=== PATIENT | female | born 1945 | race Caucasian/White ===

== ENCOUNTER 2022-11-16 01:52 | Inpatient (IN) | payer MEDICARE, MEDICAID ==
[~2022-11-16] VITALS: Ht 162.6 cm; Wt 65.3 kg
[~2022-11-16 01:52] MED LIST: ASPI-1198 PO; LISI10TA PO; METF-444 PO; MULT1TAB70 PO; OMEP20 PO
[2022-11-16] MEDS ORDERED: LABETALOL HCL 5 MG/ML 20 ML VIAL IVP PRN ×4 (02:00→02:15)
[2022-11-16 02:16] LABS: BASOPHILS % (AUTO) 0.6 % (0.0-2.0); EOSINOPHILS % (AUTO) 0.2 % (1.0-6.0); HEMATOCRIT 28.9 % (36-46); HEMOGLOBIN 9.8 g/dL (12.0-16.0); LYMPHOCYTES # (AUTO) 1.2 K/uL (1.0-4.8); LYMPHOCYTES % (AUTO) 17.7 % (22.0-44.0); MEAN CORPUSCULAR HEMOGLOBIN 34.6 pg (26.0-34.0); MEAN CORPUSCULAR HGB CONC 33.9 G/dL (31.0-37.0); MEAN CORPUSCULAR VOLUME 102 fL (80-100); MONOCYTES # (AUTO) 1.1 K/uL (0.1-1.0); MONOCYTES % (AUTO) 17.2 % (2.0-9.0); NEUTROPHILS # (AUTO) 4.2 K/uL (1.8-7.7); NEUTROPHILS % (AUTO) 64.3 % (40.0-70.0); PLATELET COUNT (AUTO) 182 K/uL (150-450); RED BLOOD CELL COUNT(AUTO) 2.83 MIL/uL (4.00-5.20); RED CELL DISTRIBUTION WIDTH 14.5 % (11.5-14.5); WHITE BLOOD COUNT (AUTO) 6.6 K/uL (4.5-11.0)
[2022-11-16 02:24] LABS: INR 1.3 (0.9-1.1); PROTHROMBIN TIME 13.1 SEC (9.4-11.6)
[2022-11-16 02:26] LABS: ALANINE AMINOTRANSFERASE 19 U/L (12-78); ALBUMIN 2.6 g/dL (3.4-5.0); ALKALINE PHOSPHATASE 115 U/L (46-116); ANION GAP 15 mmol/L (8-16); ASPARTATE AMINOTRANSFERASE 37 U/L (15-37); BILIRUBIN,TOTAL 1.7 mg/dL (0.1-1.0); CALCIUM, TOTAL 9.6 mg/dL (8.8-10.5); CARBON DIOXIDE 17 mmol/L (22-29); CHLORIDE 90 mmol/L (98-107); CHOL/HDL RATIO 2.9 (3.9-5.7); CHOLESTEROL 114 mg/dL (131-200); CREATININE 5.09 mg/dL (0.60-1.30); GLOMERULAR FILTR. RATE CALC 8 mL/min (>60); GLUCOSE,RANDOM 98 mg/dL (70-110); HDL CHOLESTEROL 40 mg/dL (40-60); LDL CHOL (CALC.) 56 mg/dL (0-130); LIPASE 57 U/L (16-77); TOTAL PROTEIN, SERUM 6.8 g/dL (6.4-8.2); TRIGLYCERIDES 91 mg/dL (15-150); UREA NITROGEN, BLOOD 78 mg/dL (7-18)
[2022-11-16 02:27] LABS: AMMONIA 128 umol/L (11-32); TROPONIN I-HIGH SENSITIVITY 22 ng/L (<51)
[2022-11-16 02:34] LABS: ALCOHOL, BLOOD (SERUM) < 3 mg/dL (0-10)
[2022-11-16 02:38] LABS: SODIUM SERUM 122 mmol/L (136-145)
[2022-11-16] MEDS ORDERED: LACTULOSE 20 GM/30 ML SOLUTION UDCUP NG ONE (02:45)
[2022-11-16] MEDS ORDERED: INSULIN REGULAR, HUMAN 100 UNITS/ML IVP ONE (02:45)
[2022-11-16] MEDS ORDERED: SODIUM CHLORIDE 0.9% 1,000 ML IV ONE (02:45)
[2022-11-16] MEDS ORDERED: DEXTROSE 50%-WATER 25 GM/50 ML SYRINGE IVP ONE (02:45)
[2022-11-16] MEDS ORDERED: CALCIUM GLUCONATE 100 MG/ML 10 ML IVP ONE (02:45)
[2022-11-16] MEDS ORDERED: SODIUM BICARBONATE [ADULT] 8.4% 50 MEQ/50 ML SYRINGE IVP ONE (02:45)
[2022-11-16 02:51] LABS: ALCOHOL, URINE DRUG SCREEN NEGATIVE (NEGATIVE); AMPHET/METH SCREEN,URINE NEGATIVE (NEGATIVE); BARBITURATE SCREEN, URINE NEGATIVE (NEGATIVE); BENZODIAZEPINES SCREEN,URINE NEGATIVE (NEGATIVE); CANNABINOID SCREEN,URINE NEGATIVE (NEGATIVE); COCAINE SCREEN,URINE NEGATIVE (NEGATIVE); METHADONE SCREEN, URINE NEGATIVE (NEGATIVE); OPIATE SCREEN,URINE NEGATIVE (NEGATIVE); PHENCYCLIDINE SCREEN,URINE NEGATIVE (NEGATIVE)
[2022-11-16 02:53] LABS: APPEARANCE,URINE CLEAR (CLEAR); BILIRUBIN,URINE NEGATIVE (NEGATIVE); COLOR,URINE YELLOW (YELLOW); GLUCOSE, URINE (UA) NEGATIVE (NEGATIVE); KETONES,URINE TRACE mg/dL (NEGATIVE); LEUKOCYTE ESTERASE ,URINE NEGATIVE (NEGATIVE); NITRATE,URINE NEGATIVE (NEGATIVE); OCCULT BLOOD,URINE NEGATIVE (NEGATIVE); PH,URINE 5.5 (5.0-8.0); PROTEIN,URINE 30-70 mg/dL (NEGATIVE); SPECIFIC GRAVITIY, URINE 1.024 (1.003-1.030)
[2022-11-16 02:58] LABS: PH,URINE DRUG SCREEN 5.5 (5.0-8.0)
[2022-11-16 03:04] LABS: BACTERIA,URINE None Seen /HPF (None Seen); RBC,URINE None Seen /HPF (0-2); SQUAMOUS EPITHELIAL CELL,UR None Seen /LPF (None Seen); WBC,URINE 0-2 /HPF (0-5)
[2022-11-16] MEDS ORDERED: ONDANSETRON HCL 4 MG/2 ML VIAL IVP PRN (03:15)
[2022-11-16] MEDS ORDERED: ALBUTEROL SULFATE 2.5 MG/0.5 ML NEB SOLUTION NEB PRN (03:15)
[2022-11-16] MEDS ORDERED: IOHEXOL 350 MG/ML 100 ML VIAL ONE (03:16)
[2022-11-16] MEDS ORDERED: ALBUMIN HUMAN 25%-25GM/100ML 100 ML IV ONE (03:30)
[2022-11-16] MEDS ORDERED: SODIUM ZIRCONIUM CYCLOSILICATE 5 GM POWDER PACKET PO ONE (03:30)
[2022-11-16 05:12] LABS: CALCIUM, TOTAL 9.3 mg/dL (8.8-10.5); CREATININE 5.05 mg/dL (0.60-1.30); POTASSIUM 4.7 mmol/L (3.5-5.1)
[2022-11-16 05:51] LABS: COVID AG,FIA SOURCE NASAL SWAB
[2022-11-16 06:18] LABS: SARS-COV2 (COVID) ANTIGEN,FIA Negative (Negative)
[2022-11-16 07:25] LABS: B-TYPE NATRIURETIC PEPTIDE 86 pg/mL (0-100)
[2022-11-16] MEDS ORDERED: *CLINICAL-CEFEPIME DOSING CLINICAL ONE (08:15)
[2022-11-16] MEDS: ACETYLCYSTEINE 10% 100 MG/ML 30 ML ORAL SOLUTION PO SCH ×2 (08:15→21:24)
[2022-11-16] MEDS: DOCUSATE SODIUM 100 MG CAPSULE PO SCH ×2 (09:00→21:00)
[2022-11-16] MEDS: CEFEPIME HCL 1 GM in DEXTROSE 5%-WATER 50 ML IV SCH (09:00)
[2022-11-16] MEDS ORDERED: LACTULOSE 20 GM/30 ML SOLUTION UDCUP PO SCH (09:00)
[2022-11-16 09:15] LABS: CHOL/HDL RATIO 2.8 (3.9-5.7)
[2022-11-16 09:33] LABS: ABG CARBOXYHEMOGLOBIN 0.4 % (0.0-1.5); ABG HCO3 17.4 mmol/L (22.0-26.0); ABG METHEMOGLOBIN 0.3 % (0.0-1.5); ABG OXYGEN CONTENT 12.5 mL/dL (15.0-23.0); ABG OXYGEN SATURATION 93.8 % (95.0-98.0); ABG OXYHEMOGLOBIN 93.1 % (94.0-100.0); ABG PCO2 22 mmHg (35-45); ABG PH 7.435 (7.35-7.450); ABG TOTAL HEMOGLOBIN 9.5 G/dL (12.0-18.0); PO2, ARTERIAL BG 72.7 mmHg (75.0-83.0); SOURCE, BLOOD GAS ARTERIAL; TEMPERATURE, FAHRENHEIT, BG 97.6 FAHREN (96.0-98.6)
[2022-11-16 09:34] LABS: ALLEN TEST, BLOOD GAS Positive; O2 DEVICE,BLOOD GAS ROOM AIR (ROOM AIR); SITE, BLOOD GAS LFT RADIAL
[2022-11-16 09:47] LABS: INR 1.4 (0.9-1.1); PROTHROMBIN TIME 13.9 SEC (9.4-11.6)
[2022-11-16] MEDS ORDERED: LACTULOSE 200 GM/300 ML RECTAL SOLUTION PR SCH (10:00)
[2022-11-16 10:17] LABS: GLUCOMETER DEV NAME(LOC) ERT.5; GLUCOSE,POINT OF CARE 88 MG/DL (70-110)
[2022-11-16] MEDS ORDERED: VANCOMYCIN HCL 1.25 GM in DEXTROSE 5%-WATER 250 ML IV ONE (11:00)
[2022-11-16] MEDS: ALBUMIN HUMAN 25%-25GM/100ML 100 ML IV SCH ×2 (11:21→21:27)
[2022-11-16 12:00] VITALS: BP 111/62; PULSE 85; RESP 22; TEMP 96.7
[2022-11-16 13:11] LABS: GLUCOSE,POINT OF CARE 118 MG/DL (70-110)
[2022-11-16] MEDS ORDERED: MULT-660 PO (14:44)
[2022-11-16] MEDS ORDERED: LISI-893 PO (14:44)
[2022-11-16 16:00] VITALS: PULSE 80
[2022-11-16 20:00] VITALS: BP 111/66; PULSE 80; PULSE 84; RESP 16; TEMP 97.4
[2022-11-16] MEDS ORDERED: ACETYLCYSTEINE 20% 200 MG/ML 4 ML ORAL SOLUTION PO SCH (21:12)
[2022-11-16] MEDS: LACTULOSE 20 GM/30 ML SOLUTION UDCUP NG SCH (21:22)
[2022-11-17] VITALS (7 sets, daily range): BP systolic 105–125; BP diastolic 58–68; PULSE 81–90; RESP 16–19; TEMP 96.7–98.1
[2022-11-17 05:09] LABS: BASOPHILS % (AUTO) 0.4 % (0.0-2.0); EOSINOPHILS % (AUTO) 0.4 % (1.0-6.0); HEMATOCRIT 23.4 % (36-46); LYMPHOCYTES # (AUTO) 0.7 K/uL (1.0-4.8); LYMPHOCYTES % (AUTO) 11.4 % (22.0-44.0); MEAN CORPUSCULAR HEMOGLOBIN 34.5 pg (26.0-34.0); MEAN CORPUSCULAR VOLUME 102 fL (80-100); MONOCYTES # (AUTO) 0.9 K/uL (0.1-1.0); MONOCYTES % (AUTO) 16.2 % (2.0-9.0); NEUTROPHILS # (AUTO) 4.1 K/uL (1.8-7.7); NEUTROPHILS % (AUTO) 71.6 % (40.0-70.0); PLATELET COUNT (AUTO) 118 K/uL (150-450); RED BLOOD CELL COUNT(AUTO) 2.31 MIL/uL (4.00-5.20); RED CELL DISTRIBUTION WIDTH 14.6 % (11.5-14.5); WHITE BLOOD COUNT (AUTO) 5.8 K/uL (4.5-11.0)
[2022-11-17 05:19] LABS: CALCIUM, TOTAL 9.5 mg/dL (8.8-10.5); CREATININE 4.76 mg/dL (0.60-1.30); MAGNESIUM 2.3 mg/dL (1.80-2.40); POTASSIUM 4.6 mmol/L (3.5-5.1)
[2022-11-17 05:27] LABS: ALBUMIN 3.3 g/dL (3.4-5.0); BILIRUBIN,DIRECT 1.1 mg/dL (0.00-0.20); BILIRUBIN,TOTAL 2.1 mg/dL (0.1-1.0); TOTAL PROTEIN, SERUM 6.3 g/dL (6.4-8.2)
[2022-11-17] MEDS ORDERED: VANCOMYCIN 1GM/WATER(PEG/NADA) 200 ML IV PRN (07:30)
[2022-11-17] MEDS: LACTULOSE 20 GM/30 ML SOLUTION UDCUP NG SCH ×2 (07:35→16:14)
[2022-11-17] MEDS: CEFEPIME HCL 1 GM in DEXTROSE 5%-WATER 50 ML IV SCH (07:35)
[2022-11-17] MEDS: ACETYLCYSTEINE 20% 200 MG/ML 4 ML ORAL SOLUTION PO SCH ×2 (07:37→21:49)
[2022-11-17] MEDS: DOCUSATE SODIUM 100 MG CAPSULE PO SCH ×2 (07:37→21:00)
[2022-11-17] MEDS: PANTOPRAZOLE SODIUM 40 MG/VIAL IVP SCH (09:10)
[2022-11-17] MEDS: ALBUMIN HUMAN 25%-25GM/100ML 100 ML IV SCH ×2 (10:07→22:49)
[2022-11-17 23:32] LABS: GLUCOMETER DEV NAME(LOC) 5N.1C; GLUCOSE,POINT OF CARE 88 MG/DL (70-110)
[2022-11-18] MEDS: LACTULOSE 20 GM/30 ML SOLUTION UDCUP NG SCH ×3 (00:13→16:14)
[2022-11-18 00:21] VITALS: BP 111/60; PULSE 92; RESP 18; TEMP 98.4
[2022-11-18 04:33] VITALS: BP 119/60; PULSE 87; RESP 18; TEMP 97.8
[2022-11-18] MEDS ORDERED: VANCOMYCIN HCL 750 MG in DEXTROSE 5%-WATER 250 ML IV ONE (05:00)
[2022-11-18 07:27] LABS: CALCIUM, TOTAL 9.5 mg/dL (8.8-10.5); CREATININE 4.6 mg/dL (0.60-1.30); POTASSIUM 4.5 mmol/L (3.5-5.1)
[2022-11-18 07:37] LABS: ALBUMIN 3.7 g/dL (3.4-5.0); BILIRUBIN,DIRECT 1.1 mg/dL (0.00-0.20); BILIRUBIN,TOTAL 2.4 mg/dL (0.1-1.0); TOTAL PROTEIN, SERUM 6.2 g/dL (6.4-8.2)
[2022-11-18] MEDS: ACETYLCYSTEINE 20% 200 MG/ML 4 ML ORAL SOLUTION PO SCH ×2 (08:43→21:00)
[2022-11-18] MEDS ORDERED: SODIUM CHLORIDE 0.9% 0 ML IV ONE (08:44)
[2022-11-18] MEDS: CEFEPIME HCL 1 GM in DEXTROSE 5%-WATER 50 ML IV SCH (08:44)
[2022-11-18] MEDS: PANTOPRAZOLE SODIUM 40 MG/VIAL IVP SCH ×2 (08:44→20:33)
[2022-11-18] MEDS: DOCUSATE SODIUM 100 MG CAPSULE PO SCH ×2 (08:44→21:00)
[2022-11-18] MEDS: ALBUMIN HUMAN 25%-25GM/100ML 100 ML IV SCH ×3 (10:58→22:28)
[2022-11-18 11:23] VITALS: BP 112/62; PULSE 83; RESP 18; TEMP 98
[2022-11-18 11:59] LABS: BASOPHILS % (AUTO) 0.4 % (0.0-2.0); EOSINOPHILS % (AUTO) 0.6 % (1.0-6.0); HEMATOCRIT 23.1 % (36-46); HEMOGLOBIN 7.7 g/dL (12.0-16.0); LYMPHOCYTES # (AUTO) 0.7 K/uL (1.0-4.8); LYMPHOCYTES % (AUTO) 11.4 % (22.0-44.0); MEAN CORPUSCULAR HEMOGLOBIN 34.2 pg (26.0-34.0); MEAN CORPUSCULAR HGB CONC 33.3 G/dL (31.0-37.0); MEAN CORPUSCULAR VOLUME 103 fL (80-100); MONOCYTES # (AUTO) 0.9 K/uL (0.1-1.0); MONOCYTES % (AUTO) 16.2 % (2.0-9.0); NEUTROPHILS # (AUTO) 4.1 K/uL (1.8-7.7); NEUTROPHILS % (AUTO) 71.4 % (40.0-70.0); PLATELET COUNT (AUTO) 102 K/uL (150-450); RED BLOOD CELL COUNT(AUTO) 2.25 MIL/uL (4.00-5.20); RED CELL DISTRIBUTION WIDTH 14.8 % (11.5-14.5); WHITE BLOOD COUNT (AUTO) 5.8 K/uL (4.5-11.0)
[2022-11-18 12:38] LABS: RBC MORPHOLOGY COMMENT ABNORMAL RBC MORPH
[2022-11-18] MEDS ORDERED: SODIUM CHLORIDE 0.9% 250 ML IV ONE (13:33)
[2022-11-18] MEDS: OCTREOTIDE ACETATE 500 MCG in SODIUM CHLORIDE 0.9% 97.5 ML IV SCH ×2 (13:37→22:36)
[2022-11-18] MEDS: RIFAXIMIN 550 MG TABLET PO SCH ×2 (13:41→21:00)
[2022-11-18 15:21] VITALS: BP 112/69; PULSE 87; RESP 18; TEMP 98.1
[2022-11-18] MEDS ORDERED: OCTREOTIDE ACETATE 100 MCG/ML VIAL SQ SCH (16:00)
[2022-11-18] MEDS: MIDODRINE HCL 2.5 MG TABLET PO SCH ×2 (16:14→21:00)
[2022-11-18 20:20] VITALS: RESP 16
[2022-11-18 23:13] LABS: GLUCOMETER DEV NAME(LOC) 5N.1C; GLUCOSE,POINT OF CARE 135 MG/DL (70-110)
[2022-11-19] VITALS (7 sets, daily range): BP systolic 103–122; BP diastolic 54–71; PULSE 55–95; RESP 14–20; TEMP 97–98.6
[2022-11-19] MEDS: LACTULOSE 20 GM/30 ML SOLUTION UDCUP NG SCH ×4 (00:23→23:46)
[2022-11-19] MEDS: ALBUMIN HUMAN 25%-25GM/100ML 100 ML IV SCH ×4 (04:01→21:54)
[2022-11-19 07:38] LABS: BILIRUBIN,DIRECT 1.2 mg/dL (0.00-0.20); BILIRUBIN,TOTAL 2.6 mg/dL (0.1-1.0); CALCIUM, TOTAL 9.7 mg/dL (8.8-10.5); CREATININE 4.38 mg/dL (0.60-1.30); MAGNESIUM 2.4 mg/dL (1.80-2.40); PHOSPHORUS 5.6 mg/dL (2.5-4.9); POTASSIUM 4.2 mmol/L (3.5-5.1); TOTAL PROTEIN, SERUM 6.2 g/dL (6.4-8.2)
[2022-11-19] MEDS: RIFAXIMIN 550 MG TABLET PO SCH ×2 (09:24→20:15)
[2022-11-19] MEDS: PANTOPRAZOLE SODIUM 40 MG/VIAL IVP SCH ×2 (09:24→20:15)
[2022-11-19] MEDS: MIDODRINE HCL 2.5 MG TABLET PO SCH ×3 (09:24→20:15)
[2022-11-19] MEDS: DOCUSATE SODIUM 100 MG CAPSULE PO SCH ×2 (09:24→20:33)
[2022-11-19] MEDS: OCTREOTIDE ACETATE 500 MCG in SODIUM CHLORIDE 0.9% 97.5 ML IV SCH ×2 (09:25→18:04)
[2022-11-19] MEDS ORDERED: PROPOFOL 1% 20 ML VIAL IVP ONE (12:00)
[2022-11-19] MEDS ORDERED: LIDOCAINE/PF 2% 5 ML VIAL IM ONE (12:00)
[2022-11-19] MEDS ORDERED: ALBUTEROL SULFATE HFA 90 MCG/PUFF 8 GM INHALER IH ONE (12:00)
[2022-11-19] MEDS ORDERED: GLYCOPYRROLATE 0.2 MG/ML VIAL IM ONE (12:00)
[2022-11-19] MEDS: CEFEPIME HCL 1 GM in DEXTROSE 5%-WATER 50 ML IV SCH (12:31)
[2022-11-19] MEDS: SEVELAMER CARBONATE 800 MG TABLET PO SCH ×2 (12:31→18:04)
[2022-11-19] MEDS: ACETYLCYSTEINE 20% 200 MG/ML 4 ML ORAL SOLUTION PO SCH (12:31)
[2022-11-19] MEDS: ACETAMINOPHEN 325 MG TABLET PO PRN ×2 (17:17→20:17)
[2022-11-19] MEDS: OXYGEN THERAPY IH SCH (20:00)
[2022-11-19] MEDS ORDERED: MORPHINE SULFATE 2 MG/ML SYRINGE IVP ONE (23:15)
[2022-11-20] MEDS: ALBUMIN HUMAN 25%-25GM/100ML 100 ML IV SCH ×4 (03:36→22:49)
[2022-11-20] MEDS: OCTREOTIDE ACETATE 500 MCG in SODIUM CHLORIDE 0.9% 97.5 ML IV SCH ×2 (05:03→17:50)
[2022-11-20 05:21] VITALS: BP 104/57; PULSE 67; RESP 16; TEMP 97.4
[2022-11-20 06:09] LABS: ALBUMIN 4.4 g/dL (3.4-5.0); BILIRUBIN,TOTAL 2.7 mg/dL (0.1-1.0); CALCIUM, TOTAL 9.3 mg/dL (8.8-10.5); CREATININE 4.44 mg/dL (0.60-1.30); MAGNESIUM 2.4 mg/dL (1.80-2.40); PHOSPHORUS 5.8 mg/dL (2.5-4.9); POTASSIUM 3.9 mmol/L (3.5-5.1); TOTAL PROTEIN, SERUM 6.1 g/dL (6.4-8.2)
[2022-11-20 07:36] VITALS: BP 100/45; PULSE 58; RESP 18; TEMP 98
[2022-11-20] MEDS: OXYGEN THERAPY IH SCH ×2 (08:27→20:00)
[2022-11-20] MEDS: DOCUSATE SODIUM 100 MG CAPSULE PO SCH ×2 (08:28→21:00)
[2022-11-20] MEDS: RIFAXIMIN 550 MG TABLET PO SCH ×2 (08:28→20:04)
[2022-11-20] MEDS: LACTULOSE 20 GM/30 ML SOLUTION UDCUP NG SCH ×3 (08:28→23:34)
[2022-11-20] MEDS: SEVELAMER CARBONATE 800 MG TABLET PO SCH ×3 (08:28→17:50)
[2022-11-20] MEDS: MIDODRINE HCL 2.5 MG TABLET PO SCH ×3 (08:29→20:04)
[2022-11-20] MEDS: PANTOPRAZOLE SODIUM 40 MG/VIAL IVP SCH ×2 (08:29→20:04)
[2022-11-20] MEDS: CEFEPIME HCL 1 GM in DEXTROSE 5%-WATER 50 ML IV SCH (08:30)
[2022-11-20 09:11] LABS: GLUCOMETER DEV NAME(LOC) 5N.2C; GLUCOSE,POINT OF CARE 154 MG/DL (70-110)
[2022-11-20 11:11] VITALS: BP 111/53; PULSE 56; RESP 20; TEMP 97.8
[2022-11-20] MEDS: ACETAMINOPHEN 325 MG TABLET PO PRN (12:39)
[2022-11-20] MEDS ORDERED: MORPHINE SULFATE 2 MG/ML SYRINGE IVP PRN (14:15)
[2022-11-20 15:41] VITALS: BP 97/53; PULSE 55; RESP 18; TEMP 98
[2022-11-20 16:08] LABS: BASOPHILS % (AUTO) 0.6 % (0.0-2.0); EOSINOPHILS % (AUTO) 1.2 % (1.0-6.0); HEMATOCRIT 22.7 % (36-46); HEMOGLOBIN 7.5 g/dL (12.0-16.0); LYMPHOCYTES # (AUTO) 0.5 K/uL (1.0-4.8); LYMPHOCYTES % (AUTO) 10.1 % (22.0-44.0); MEAN CORPUSCULAR HEMOGLOBIN 34.4 pg (26.0-34.0); MEAN CORPUSCULAR HGB CONC 32.9 G/dL (31.0-37.0); MEAN CORPUSCULAR VOLUME 105 fL (80-100); MONOCYTES # (AUTO) 0.7 K/uL (0.1-1.0); MONOCYTES % (AUTO) 15.1 % (2.0-9.0); NEUTROPHILS # (AUTO) 3.5 K/uL (1.8-7.7); PLATELET COUNT (AUTO) 87 K/uL (150-450); RED BLOOD CELL COUNT(AUTO) 2.17 MIL/uL (4.00-5.20); RED CELL DISTRIBUTION WIDTH 15.6 % (11.5-14.5); WHITE BLOOD COUNT (AUTO) 4.9 K/uL (4.5-11.0)
[2022-11-20 16:33] LABS: RBC MORPHOLOGY COMMENT ABNORMAL RBC MORPH
[2022-11-20 18:30] LABS: TROPONIN I-HIGH SENSITIVITY 24 ng/L (<51)
[2022-11-20 21:16] VITALS: BP 115/79; PULSE 62; RESP 19; TEMP 97.6
[2022-11-21] VITALS (10 sets, daily range): BP systolic 99–116; BP diastolic 44–63; PULSE 58–68; RESP 16–19; TEMP 97.5–98.6
[2022-11-21] MEDS ORDERED: SODIUM CHLORIDE 0.9% 500 ML IV ONE ×3 (01:05→16:43)
[2022-11-21] MEDS: OCTREOTIDE ACETATE 500 MCG in SODIUM CHLORIDE 0.9% 97.5 ML IV SCH ×2 (01:08→17:06)
[2022-11-21] MEDS: ALBUMIN HUMAN 25%-25GM/100ML 100 ML IV SCH ×4 (03:07→21:20)
[2022-11-21] MEDS ORDERED: VANCOMYCIN HCL 750 MG in DEXTROSE 5%-WATER 250 ML IV ONE (05:00)
[2022-11-21 06:46] LABS: EOSINOPHILS % (AUTO) 2.3 % (1.0-6.0); HEMATOCRIT 22.1 % (36-46); HEMOGLOBIN 7.4 g/dL (12.0-16.0); LYMPHOCYTES # (AUTO) 0.6 K/uL (1.0-4.8); MEAN CORPUSCULAR HEMOGLOBIN 34.7 pg (26.0-34.0); MEAN CORPUSCULAR HGB CONC 33.3 G/dL (31.0-37.0); MEAN CORPUSCULAR VOLUME 104 fL (80-100); MONOCYTES # (AUTO) 0.8 K/uL (0.1-1.0); MONOCYTES % (AUTO) 15.5 % (2.0-9.0); NEUTROPHILS # (AUTO) 3.7 K/uL (1.8-7.7); NEUTROPHILS % (AUTO) 70.2 % (40.0-70.0); PLATELET COUNT (AUTO) 82 K/uL (150-450); RED BLOOD CELL COUNT(AUTO) 2.13 MIL/uL (4.00-5.20); RED CELL DISTRIBUTION WIDTH 15.6 % (11.5-14.5); WHITE BLOOD COUNT (AUTO) 5.2 K/uL (4.5-11.0)
[2022-11-21 07:27] LABS: CALCIUM, TOTAL 9.7 mg/dL (8.8-10.5); CREATININE 4.47 mg/dL (0.60-1.30); MAGNESIUM 2.6 mg/dL (1.80-2.40); PHOSPHORUS 5.4 mg/dL (2.5-4.9); POTASSIUM 3.5 mmol/L (3.5-5.1)
[2022-11-21 08:03] LABS: RBC MORPHOLOGY COMMENT ABNORMAL RBC MORPH
[2022-11-21] MEDS: DOCUSATE SODIUM 100 MG CAPSULE PO SCH ×2 (09:00→21:00)
[2022-11-21] MEDS: RIFAXIMIN 550 MG TABLET PO SCH ×2 (09:01→21:19)
[2022-11-21] MEDS: LACTULOSE 20 GM/30 ML SOLUTION UDCUP NG SCH ×3 (09:01→23:41)
[2022-11-21] MEDS: SEVELAMER CARBONATE 800 MG TABLET PO SCH ×3 (09:01→18:38)
[2022-11-21] MEDS: MIDODRINE HCL 2.5 MG TABLET PO SCH ×3 (09:02→21:19)
[2022-11-21] MEDS: PANTOPRAZOLE SODIUM 40 MG/VIAL IVP SCH ×2 (09:02→21:19)
[2022-11-21] MEDS: OXYGEN THERAPY IH SCH ×2 (09:02→21:21)
[2022-11-21] MEDS: CEFEPIME HCL 1 GM in DEXTROSE 5%-WATER 50 ML IV SCH (09:04)
[2022-11-22] MEDS: OCTREOTIDE ACETATE 500 MCG in SODIUM CHLORIDE 0.9% 97.5 ML IV SCH ×3 (02:34→21:38)
[2022-11-22] MEDS: ALBUMIN HUMAN 25%-25GM/100ML 100 ML IV SCH ×2 (03:34→10:15)
[2022-11-22 04:00] VITALS: BP 116/64; PULSE 63; RESP 19; TEMP 97.9
[2022-11-22 06:45] LABS: BASOPHILS % (AUTO) 0.6 % (0.0-2.0); EOSINOPHILS % (AUTO) 1.8 % (1.0-6.0); HEMATOCRIT 25.7 % (36-46); HEMOGLOBIN 8.8 g/dL (12.0-16.0); LYMPHOCYTES # (AUTO) 0.7 K/uL (1.0-4.8); LYMPHOCYTES % (AUTO) 12.4 % (22.0-44.0); MEAN CORPUSCULAR HEMOGLOBIN 34.2 pg (26.0-34.0); MEAN CORPUSCULAR HGB CONC 34.2 G/dL (31.0-37.0); MEAN CORPUSCULAR VOLUME 100 fL (80-100); MONOCYTES # (AUTO) 0.8 K/uL (0.1-1.0); MONOCYTES % (AUTO) 13.6 % (2.0-9.0); NEUTROPHILS # (AUTO) 4.1 K/uL (1.8-7.7); NEUTROPHILS % (AUTO) 71.6 % (40.0-70.0); PLATELET COUNT (AUTO) 71 K/uL (150-450); RED BLOOD CELL COUNT(AUTO) 2.57 MIL/uL (4.00-5.20); WHITE BLOOD COUNT (AUTO) 5.7 K/uL (4.5-11.0)
[2022-11-22 07:04] LABS: ALBUMIN 5.3 g/dL (3.4-5.0); BILIRUBIN,TOTAL 4.2 mg/dL (0.1-1.0); CALCIUM, TOTAL 9.7 mg/dL (8.8-10.5); CREATININE 3.61 mg/dL (0.60-1.30); MAGNESIUM 2.6 mg/dL (1.80-2.40); PHOSPHORUS 4.7 mg/dL (2.5-4.9); TOTAL PROTEIN, SERUM 6.6 g/dL (6.4-8.2)
[2022-11-22 07:22] LABS: POTASSIUM 2.9 mmol/L (3.5-5.1)
[2022-11-22] MEDS ORDERED: POTASSIUM CHLORIDE 20 MEQ ER TABLET PO ONE (07:45)
[2022-11-22] MEDS: OXYGEN THERAPY IH SCH ×2 (08:00→21:44)
[2022-11-22] MEDS: SEVELAMER CARBONATE 800 MG TABLET PO SCH ×3 (08:20→18:03)
[2022-11-22] MEDS: LACTULOSE 20 GM/30 ML SOLUTION UDCUP NG SCH ×2 (08:21→16:12)
[2022-11-22] MEDS: POTASSIUM CHL 10 MEQ/WATER 50 ML IV SCH ×2 (08:25→10:15)
[2022-11-22 08:30] VITALS: BP 112/72; PULSE 66; RESP 18; TEMP 97.8
[2022-11-22] MEDS: DOCUSATE SODIUM 100 MG CAPSULE PO SCH ×2 (09:00→21:37)
[2022-11-22] MEDS: MIDODRINE HCL 2.5 MG TABLET PO SCH ×3 (10:14→21:38)
[2022-11-22] MEDS: RIFAXIMIN 550 MG TABLET PO SCH ×2 (10:14→21:38)
[2022-11-22] MEDS: CEFEPIME HCL 1 GM in DEXTROSE 5%-WATER 50 ML IV SCH (10:15)
[2022-11-22] MEDS: PANTOPRAZOLE SODIUM 40 MG/VIAL IVP SCH ×2 (10:15→21:37)
[2022-11-22] MEDS: ACETAMINOPHEN 325 MG TABLET PO PRN (12:34)
[2022-11-22 16:59] VITALS: BP 90/55; PULSE 76; RESP 19; TEMP 97.9
[2022-11-22 18:16] LABS: CALCIUM, TOTAL 9.5 mg/dL (8.8-10.5); CREATININE 3.69 mg/dL (0.60-1.30); POTASSIUM 3.9 mmol/L (3.5-5.1)
[2022-11-22 20:22] VITALS: BP 128/62; PULSE 65; RESP 20; TEMP 98.5
[2022-11-23] MEDS: LACTULOSE 20 GM/30 ML SOLUTION UDCUP NG SCH ×4 (00:39→23:18)
[2022-11-23 05:52] VITALS: BP 107/57; PULSE 66; RESP 18; TEMP 98.3
[2022-11-23 06:39] LABS: CALCIUM, TOTAL 9.6 mg/dL (8.8-10.5); CREATININE 3.3 mg/dL (0.60-1.30); MAGNESIUM 2.4 mg/dL (1.80-2.40); PHOSPHORUS 3.2 mg/dL (2.5-4.9); POTASSIUM 3.6 mmol/L (3.5-5.1); VANCOMYCIN,RANDOM 19.2 mcg/mL (25.0-50.0)
[2022-11-23] MEDS: RIFAXIMIN 550 MG TABLET PO SCH ×2 (08:11→20:09)
[2022-11-23] MEDS: PANTOPRAZOLE SODIUM 40 MG/VIAL IVP SCH ×2 (08:11→20:09)
[2022-11-23] MEDS: DOCUSATE SODIUM 100 MG CAPSULE PO SCH ×2 (08:11→20:09)
[2022-11-23] MEDS: OCTREOTIDE ACETATE 500 MCG in SODIUM CHLORIDE 0.9% 97.5 ML IV SCH ×2 (08:11→17:59)
[2022-11-23] MEDS: SEVELAMER CARBONATE 800 MG TABLET PO SCH ×3 (08:11→17:59)
[2022-11-23] MEDS: MIDODRINE HCL 2.5 MG TABLET PO SCH ×3 (08:12→20:09)
[2022-11-23] MEDS: OXYGEN THERAPY IH SCH ×2 (08:12→20:09)
[2022-11-23] MEDS: CEFEPIME HCL 1 GM in DEXTROSE 5%-WATER 50 ML IV SCH (08:13)
[2022-11-23 09:11] VITALS: BP 128/63; PULSE 64; RESP 18; TEMP 98.1
[2022-11-23 16:58] VITALS: BP 132/52; PULSE 57; RESP 18; TEMP 98.1
[2022-11-23 20:18] VITALS: BP 113/54; PULSE 59; RESP 16; TEMP 98
[2022-11-24] MEDS: OCTREOTIDE ACETATE 500 MCG in SODIUM CHLORIDE 0.9% 97.5 ML IV SCH ×3 (04:05→23:21)
[2022-11-24] MEDS ORDERED: VANCOMYCIN HCL 750 MG in DEXTROSE 5%-WATER 250 ML IV ONE (05:00)
[2022-11-24 05:06] VITALS: BP 112/63; PULSE 63; RESP 18; TEMP 98.3
[2022-11-24] MEDS: RIFAXIMIN 550 MG TABLET PO SCH ×2 (08:42→21:05)
[2022-11-24] MEDS: PANTOPRAZOLE SODIUM 40 MG/VIAL IVP SCH ×2 (08:42→21:02)
[2022-11-24] MEDS: SEVELAMER CARBONATE 800 MG TABLET PO SCH ×3 (08:42→17:41)
[2022-11-24] MEDS: DOCUSATE SODIUM 100 MG CAPSULE PO SCH ×2 (08:42→21:00)
[2022-11-24] MEDS: MIDODRINE HCL 2.5 MG TABLET PO SCH ×3 (08:43→21:05)
[2022-11-24] MEDS: CEFEPIME HCL 1 GM in DEXTROSE 5%-WATER 50 ML IV SCH (08:46)
[2022-11-24] MEDS: LACTULOSE 20 GM/30 ML SOLUTION UDCUP NG SCH ×3 (09:01→23:22)
[2022-11-24] MEDS: OXYGEN THERAPY IH SCH ×2 (09:01→20:00)
[2022-11-24 09:12] VITALS: BP 102/54; PULSE 67; RESP 19; TEMP 98.4
[2022-11-24 17:08] VITALS: BP 96/53; PULSE 55; RESP 19; TEMP 98.4
[2022-11-24 20:00] VITALS: BP 93/48; PULSE 61; RESP 16; TEMP 98.3
[2022-11-25 04:30] VITALS: BP 98/50; PULSE 65; RESP 20; TEMP 98.3
[2022-11-25 06:51] LABS: CALCIUM, TOTAL 9.3 mg/dL (8.8-10.5); CREATININE 2.43 mg/dL (0.60-1.30); MAGNESIUM 2.2 mg/dL (1.80-2.40); POTASSIUM 3.8 mmol/L (3.5-5.1)
[2022-11-25] MEDS: OXYGEN THERAPY IH SCH ×2 (08:00→20:00)
[2022-11-25] MEDS ORDERED: SODIUM PHOS,M-BASIC-D-BASIC 10 MEQ in DEXTROSE 5%-WATER 50 ML IV ONE (08:30)
[2022-11-25] MEDS: LACTULOSE 20 GM/30 ML SOLUTION UDCUP NG SCH ×2 (09:05→16:18)
[2022-11-25] MEDS: SEVELAMER CARBONATE 800 MG TABLET PO SCH ×2 (09:05→12:00)
[2022-11-25] MEDS: PANTOPRAZOLE SODIUM 40 MG/VIAL IVP SCH ×2 (09:05→21:36)
[2022-11-25] MEDS: MIDODRINE HCL 2.5 MG TABLET PO SCH ×3 (09:06→21:38)
[2022-11-25] MEDS: RIFAXIMIN 550 MG TABLET PO SCH ×2 (09:06→21:39)
[2022-11-25] MEDS: DOCUSATE SODIUM 100 MG CAPSULE PO SCH ×2 (09:06→21:00)
[2022-11-25] MEDS: CEFEPIME HCL 1 GM in DEXTROSE 5%-WATER 50 ML IV SCH (09:08)
[2022-11-25 09:15] VITALS: BP 95/49; PULSE 68; RESP 20; TEMP 98.6
[2022-11-25] MEDS: OCTREOTIDE ACETATE 500 MCG in SODIUM CHLORIDE 0.9% 97.5 ML IV SCH ×2 (10:56→21:36)
[2022-11-25 19:02] VITALS: BP 100/56; PULSE 61; RESP 19; TEMP 98.2
[2022-11-25 20:16] VITALS: BP 100/56; PULSE 60; RESP 20; TEMP 98.3
[2022-11-26] MEDS: LACTULOSE 20 GM/30 ML SOLUTION UDCUP NG SCH ×4 (00:08→23:16)
[2022-11-26 05:11] VITALS: BP 97/61; PULSE 60; RESP 20; TEMP 98.3
[2022-11-26] MEDS: OCTREOTIDE ACETATE 500 MCG in SODIUM CHLORIDE 0.9% 97.5 ML IV SCH ×2 (05:56→17:04)
[2022-11-26 06:20] LABS: CALCIUM, TOTAL 9.3 mg/dL (8.8-10.5); CREATININE 2.38 mg/dL (0.60-1.30); MAGNESIUM 2.3 mg/dL (1.80-2.40); PHOSPHORUS 2.4 mg/dL (2.5-4.9); VANCOMYCIN,RANDOM 19.2 mcg/mL (25.0-50.0)
[2022-11-26] MEDS: OXYGEN THERAPY IH SCH ×2 (08:00→20:00)
[2022-11-26] MEDS: CEFEPIME HCL 1 GM in DEXTROSE 5%-WATER 50 ML IV SCH (08:14)
[2022-11-26] MEDS: DOCUSATE SODIUM 100 MG CAPSULE PO SCH ×2 (08:15→20:30)
[2022-11-26] MEDS: RIFAXIMIN 550 MG TABLET PO SCH ×2 (08:15→20:29)
[2022-11-26] MEDS: MIDODRINE HCL 2.5 MG TABLET PO SCH ×3 (08:15→20:29)
[2022-11-26] MEDS: PANTOPRAZOLE SODIUM 40 MG/VIAL IVP SCH ×2 (08:15→20:29)
[2022-11-26 08:42] VITALS: BP 104/53; PULSE 59; RESP 20; TEMP 98.1
[2022-11-26] MEDS ORDERED: VANCOMYCIN HCL 750 MG in DEXTROSE 5%-WATER 250 ML IV ONE (11:00)
[2022-11-26] MEDS: FUROSEMIDE 20 MG TABLET PO SCH (11:34)
[2022-11-26] MEDS: SPIRONOLACTONE 25 MG TABLET PO SCH (11:35)
[2022-11-26] MEDS ORDERED: EPOETIN ALFA 10,000 UNITS/ML VIAL SQ SCH (13:00)
[2022-11-26 16:50] VITALS: BP 88/44; PULSE 59; RESP 19; TEMP 97.8
[2022-11-26 19:46] LABS: GLUCOMETER DEV NAME(LOC) 4E.2; GLUCOSE,POINT OF CARE 210 MG/DL (70-110)
[2022-11-26 20:00] VITALS: BP 120/62; PULSE 64; RESP 18; TEMP 98.3
[2022-11-27] MEDS: OCTREOTIDE ACETATE 500 MCG in SODIUM CHLORIDE 0.9% 97.5 ML IV SCH ×2 (01:06→12:53)
[2022-11-27 03:52] VITALS: BP 107/59; PULSE 58; RESP 18; TEMP 98
[2022-11-27] MEDS: OXYGEN THERAPY IH SCH (08:00)
[2022-11-27 08:05] VITALS: BP 81/46; PULSE 62; RESP 19; TEMP 98.1
[2022-11-27] MEDS: MIDODRINE HCL 2.5 MG TABLET PO SCH (08:56)
[2022-11-27] MEDS: RIFAXIMIN 550 MG TABLET PO SCH (08:57)
[2022-11-27] MEDS: FUROSEMIDE 20 MG TABLET PO SCH (08:58)
[2022-11-27] MEDS: LACTULOSE 20 GM/30 ML SOLUTION UDCUP NG SCH (08:59)
[2022-11-27] MEDS: DOCUSATE SODIUM 100 MG CAPSULE PO SCH (08:59)
[2022-11-27] MEDS: SPIRONOLACTONE 25 MG TABLET PO SCH (08:59)
[2022-11-27] MEDS: PANTOPRAZOLE SODIUM 40 MG/VIAL IVP SCH (09:00)
[2022-11-27] MEDS: CEFEPIME HCL 1 GM in DEXTROSE 5%-WATER 50 ML IV SCH (09:10)
[2022-11-27 13:04] VITALS: BP 105/56; PULSE 65; RESP 20; TEMP 98.6
[2022-11-27 18:27] LABS: GLUCOMETER DEV NAME(LOC) 6S.1B; GLUCOSE,POINT OF CARE 201 MG/DL (70-110)
== END 2022-11-27 14:25 | DRG 441 ==
LOC: EMS 01:53 → ICU 07:42 → 5S 11-17 17:45 → 6S 11-21 19:49
PROVIDERS: ADMIT Internal Medicine; ATTEND Internal Medicine
PROC: 06L38CZ Occlusion of Esophageal Vein with Extraluminal Device, Via Natural or Artificial Opening Endoscopic (ICD-10-PCS; 2022-11-19)
PROC: 30233N1 Transfusion of Nonautologous Red Blood Cells into Peripheral Vein, Percutaneous Approach (ICD-10-PCS; principal; 2022-11-21)
PROC: 0W9G3ZZ Drainage of Peritoneal Cavity, Percutaneous Approach (ICD-10-PCS; 2022-11-21)
DX: K76.82 Hepatic encephalopathy (principal); G92.8 Other toxic encephalopathy; J69.0 Pneumonitis due to inhalation of food and vomit; K76.7 Hepatorenal syndrome; K26.4 Chronic or unspecified duodenal ulcer with hemorrhage; R18.8 Other ascites; K76.6 Portal hypertension; D68.9 Coagulation defect, unspecified; E87.1 Hypo-osmolality and hyponatremia; E87.20 Acidosis, unspecified; E44.0 Moderate protein-calorie malnutrition; N17.9 Acute kidney failure, unspecified; I85.10 Secondary esophageal varices without bleeding; Z20.822 Contact with and (suspected) exposure to COVID-19; K74.60 Unspecified cirrhosis of liver; D63.8 Anemia in other chronic diseases classified elsewhere; E03.9 Hypothyroidism, unspecified; N14.11 Contrast-induced nephropathy; E83.39 Other disorders of phosphorus metabolism; E87.6 Hypokalemia; D69.6 Thrombocytopenia, unspecified; E87.5 Hyperkalemia; E11.9 Type 2 diabetes mellitus without complications; K21.9 Gastro-esophageal reflux disease without esophagitis; I10 Essential (primary) hypertension; E78.00 Pure hypercholesterolemia, unspecified; I25.10 Atherosclerotic heart disease of native coronary artery without angina pectoris; K75.81 Nonalcoholic steatohepatitis (NASH); K31.89 Other diseases of stomach and duodenum; Z68.24 Body mass index [BMI] 24.0-24.9, adult; Z88.0 Allergy status to penicillin; Z82.49 Family history of ischemic heart disease and other diseases of the circulatory system; Z83.3 Family history of diabetes mellitus; Z79.899 Other long term (current) drug therapy; Z87.440 Personal history of urinary (tract) infections
CPT/HCPCS: 36600; 49083; 51702; 70496; 70498; 71045; 76700; 76770; 76942; 80048; 80053; 80061; 80076; 80202; 80307; 81001; 82140; 82271; 82570; 82805; 82948; 82962; 83036; 83605; 83690; 83735; 83880; 84100; 84132; 84300; 84484; 85025; 85610; 85730; 86850; 86900; 86901; 86923; 87040; 87081; 92523; 92526; 92610; 93005; 93880; 97110; 97116; 97162; 97530; 99291; C9113; G0378; G0480; J0610; J0692; J0885; J1815; J2270; J2354; J2704; J3370; J3480; J3490; J3535; J7030; J7040; J7050; J7060; P9016; P9046; Q9967; 36415-L1; 36415-TC; 70450; 70450-TC; X7700

== ENCOUNTER 2022-11-30 10:26 | Inpatient (IN) | payer MEDICARE, MEDICAID ==
[~2022-11-30] VITALS: Ht 149.9 cm; Wt 68.0 kg
[~2022-11-30 10:26] MED LIST changes: +LISI-893 PO; -LISI10TA PO; +MULT-660 PO; -MULT1TAB70 PO
[2022-11-30] MEDS ORDERED: SUCR1TAB PO (10:33)
[2022-11-30] MEDS ORDERED: GLIP5TAB15 PO (10:33)
[2022-11-30] MEDS ORDERED: PROP10TA72 PO (10:33)
[2022-11-30] MEDS ORDERED: FAMO20 PO (10:33)
[2022-11-30] MEDS ORDERED: DICY-1 PO (10:33)
[2022-11-30] MEDS ORDERED: LEVO25TA9 PO (10:33)
[2022-11-30] MEDS ORDERED: FERR325T23 PO (10:33)
[2022-11-30] MEDS ORDERED: LATA2.5D14 OU (10:33)
[2022-11-30 11:06] LABS: BASOPHILS % (AUTO) 0.7 % (0.0-2.0); HEMOGLOBIN 7.9 g/dL (12.0-16.0); LYMPHOCYTES # (AUTO) 0.5 K/uL (1.0-4.8); MEAN CORPUSCULAR HEMOGLOBIN 34.2 pg (26.0-34.0); RED BLOOD CELL COUNT(AUTO) 2.31 MIL/uL (4.00-5.20)
[2022-11-30 11:10] LABS: EOSINOPHILS % (AUTO) 0.9 % (1.0-6.0); HEMATOCRIT 24.4 % (36-46); LYMPHOCYTES % (AUTO) 6.1 % (22.0-44.0); MEAN CORPUSCULAR HGB CONC 32.3 G/dL (31.0-37.0); MEAN CORPUSCULAR VOLUME 106 fL (80-100); MONOCYTES # (AUTO) 0.8 K/uL (0.1-1.0); MONOCYTES % (AUTO) 9.3 % (2.0-9.0); NEUTROPHILS # (AUTO) 6.9 K/uL (1.8-7.7); RED CELL DISTRIBUTION WIDTH 19.8 % (11.5-14.5); WHITE BLOOD COUNT (AUTO) 8.3 K/uL (4.5-11.0)
[2022-11-30 11:15] LABS: CALCIUM, TOTAL 10.1 mg/dL (8.8-10.5); CREATININE 4.16 mg/dL (0.60-1.30); POTASSIUM 4.1 mmol/L (3.5-5.1)
[2022-11-30 11:18] LABS: INR 2.2 (0.9-1.1); PROTHROMBIN TIME 21.9 SEC (9.4-11.6)
[2022-11-30 11:19] LABS: COVID AG,FIA SOURCE NASAL SWAB
[2022-11-30 11:21] LABS: ALBUMIN 4.2 g/dL (3.4-5.0); BILIRUBIN,TOTAL 2.9 mg/dL (0.1-1.0); TOTAL PROTEIN, SERUM 6.9 g/dL (6.4-8.2)
[2022-11-30 11:22] LABS: TROPONIN I-HIGH SENSITIVITY 20 ng/L (<51)
[2022-11-30 11:23] LABS: PLATELET COUNT (AUTO) 89 K/uL (150-450); RBC MORPHOLOGY COMMENT ABNORMAL RBC MORPH
[2022-11-30 11:41] LABS: SARS-COV2 (COVID) ANTIGEN,FIA Negative (Negative)
[2022-11-30] MEDS ORDERED: PHYTONADIONE 10 MG/ML VIAL SQ ONE (12:15)
[2022-11-30] MEDS ORDERED: ALBUMIN HUMAN 25%-25GM/100ML 100 ML IV ONE (12:30)
[2022-11-30] MEDS ORDERED: SODIUM CHLORIDE 0.9% 1,000 ML IV ONE (12:45)
[2022-11-30] MEDS ORDERED: MIDODRINE HCL 5 MG TABLET PO SCH ×2 (15:02→21:00)
[2022-11-30] MEDS ORDERED: MIDODRINE HCL 5 MG TABLET PO ONE (16:15)
[2022-11-30 16:50] VITALS: BP 91/48; PULSE 75; RESP 16; TEMP 97.5
[2022-11-30 16:52] LABS: APPEARANCE,URINE HAZY (CLEAR); BILIRUBIN,URINE NEGATIVE (NEGATIVE); COLOR,URINE YELLOW (YELLOW); GLUCOSE, URINE (UA) NEGATIVE (NEGATIVE); KETONES,URINE TRACE mg/dL (NEGATIVE); LEUKOCYTE ESTERASE ,URINE LARGE (NEGATIVE); NITRATE,URINE NEGATIVE (NEGATIVE); OCCULT BLOOD,URINE MODERATE (NEGATIVE); PROTEIN,URINE 300-600,SEE CONFIRM mg/dL (NEGATIVE); SPECIFIC GRAVITIY, URINE 1.019 (1.003-1.030); UROBILINOGEN,URINE <=1.0 mg/dL (<=1.0)
[2022-11-30 17:14] LABS: BACTERIA,URINE Few /HPF (None Seen); SULFOSALICYLIC ACID,URINE 4+ (Negative); WBC,URINE 26-50 /HPF (0-5)
[2022-11-30] MEDS: LACTULOSE 20 GM/30 ML SOLUTION UDCUP PO SCH (17:14)
[2022-11-30 17:15] LABS: SQUAMOUS EPITHELIAL CELL,UR Few /LPF (None Seen); YEAST,URINE Many /HPF (None Seen)
[2022-11-30] MEDS ORDERED: DEXTROSE 50%-WATER 25 GM/50 ML SYRINGE IVP PRN (17:15)
[2022-11-30] MEDS: INSULIN LISPRO 100 UNITS/ML SQ PRN (17:43)
[2022-11-30] MEDS: OCTREOTIDE ACETATE 500 MCG in SODIUM CHLORIDE 0.9% 97.5 ML IV SCH (18:23)
[2022-11-30] MEDS: PANTOPRAZOLE SODIUM 40 MG DR TABLET PO SCH (20:01)
[2022-11-30] MEDS: MIDODRINE HCL 5 MG TABLET PO SCH (20:02)
[2022-11-30 21:04] LABS: ABG BASE EXCESS -16.1 mmol/L (-2.0-3.0); ABG CARBOXYHEMOGLOBIN 0.8 % (0.0-1.5); ABG HCO3 12.9 mmol/L (22.0-26.0); ABG METHEMOGLOBIN 0.3 % (0.0-1.5); ABG OXYGEN CONTENT 10.7 mL/dL (15.0-23.0); ABG OXYGEN SATURATION 95.9 % (95.0-98.0); ABG OXYHEMOGLOBIN 94.8 % (94.0-100.0); ABG PCO2 24 mmHg (35-45); ABG PH 7.278 (7.35-7.450); PO2, ARTERIAL BG 84.6 mmHg (75.0-83.0); SOURCE, BLOOD GAS ARTERIAL; TEMPERATURE, FAHRENHEIT, BG 97.5 FAHREN (96.0-98.6)
[2022-11-30 21:05] VITALS: BP 90/49; RESP 17
[2022-11-30 21:08] LABS: ABG TOTAL HEMOGLOBIN 7.9 G/dL (12.0-18.0); ALLEN TEST, BLOOD GAS Positive; SITE, BLOOD GAS RT RADIAL
[2022-11-30 21:09] LABS: ABG A-A DIFF O2 87.8 mmHg (10-20.0); O2 DEVICE,BLOOD GAS CANNULA (ROOM AIR)
[2022-11-30] MEDS ORDERED: NOREPINEPHRINE 8 MG/0.9 % NACL 250 ML IV PRN (21:30)
[2022-11-30] MEDS ORDERED: *CLINICAL-CEFEPIME DOSING CLINICAL ONE (21:30)
[2022-11-30] MEDS ORDERED: SODIUM BICARBONATE 150 MEQ in DEXTROSE 5%-WATER 1,000 ML IV ONE (22:00)
[2022-11-30 22:51] LABS: GLUCOMETER DEV NAME(LOC) 5N.2C; GLUCOSE,POINT OF CARE 138 MG/DL (70-110)
[2022-11-30] MEDS ORDERED: CEFEPIME HCL 0.5 GM in DEXTROSE 5%-WATER 50 ML IV SCH (23:00)
[2022-11-30 23:03] LABS: LACTIC ACID 3.1 mmol/L (0.4-2.0)
[2022-11-30] MEDS ORDERED: SODIUM CHLORIDE 0.9% 250 ML IV ONE (23:53)
[2022-12-01] VITALS (8 sets, daily range): BP systolic 93–111; BP diastolic 43–87; PULSE 72–117; RESP 16–20; TEMP 94.9–96.4
[2022-12-01] MEDS: LACTULOSE 20 GM/30 ML SOLUTION UDCUP PO SCH ×5 (00:08→21:41)
[2022-12-01] MEDS: MELATONIN 3 MG TABLET PO ONE ×2 (00:18→00:22)
[2022-12-01] MEDS ORDERED: DEXTROSE 50%-WATER 25 GM/50 ML SYRINGE IVP PRN (02:30)
[2022-12-01] MEDS: INSULIN LISPRO 100 UNITS/ML SQ PRN ×3 (02:59→17:26)
[2022-12-01] MEDS: OCTREOTIDE ACETATE 500 MCG in SODIUM CHLORIDE 0.9% 97.5 ML IV SCH ×3 (03:03→23:54)
[2022-12-01 03:11] LABS: GLUCOSE,POINT OF CARE 218 MG/DL (70-110)
[2022-12-01] MEDS: LEVOTHYROXINE SODIUM 25 MCG TABLET PO SCH (05:40)
[2022-12-01 06:03] LABS: BASOPHILS % (AUTO) 0.6 % (0.0-2.0); EOSINOPHILS % (AUTO) 1.3 % (1.0-6.0); HEMATOCRIT 21.2 % (36-46); LYMPHOCYTES # (AUTO) 0.6 K/uL (1.0-4.8); LYMPHOCYTES % (AUTO) 6.4 % (22.0-44.0); MEAN CORPUSCULAR HEMOGLOBIN 34.4 pg (26.0-34.0); MEAN CORPUSCULAR HGB CONC 33.2 G/dL (31.0-37.0); MEAN CORPUSCULAR VOLUME 104 fL (80-100); MONOCYTES # (AUTO) 0.7 K/uL (0.1-1.0); MONOCYTES % (AUTO) 7.5 % (2.0-9.0); NEUTROPHILS # (AUTO) 7.6 K/uL (1.8-7.7); NEUTROPHILS % (AUTO) 84.2 % (40.0-70.0); PLATELET COUNT (AUTO) 87 K/uL (150-450); RED BLOOD CELL COUNT(AUTO) 2.05 MIL/uL (4.00-5.20); RED CELL DISTRIBUTION WIDTH 19.9 % (11.5-14.5); WHITE BLOOD COUNT (AUTO) 9.1 K/uL (4.5-11.0)
[2022-12-01 06:06] LABS: CALCIUM, TOTAL 9.9 mg/dL (8.8-10.5); CREATININE 4.41 mg/dL (0.60-1.30); PHOSPHORUS 4.1 mg/dL (2.5-4.9); POTASSIUM 3.7 mmol/L (3.5-5.1)
[2022-12-01] MEDS ORDERED: GlipiZIDE 5 MG TABLET PO SCH (06:30)
[2022-12-01 06:41] LABS: GLUCOMETER DEV NAME(LOC) PVLAB.39; GLUCOSE,POINT OF CARE 187 MG/DL (70-110)
[2022-12-01] MEDS ORDERED: EPOETIN ALFA 10,000 UNITS/ML VIAL SQ SCH (07:00)
[2022-12-01] MEDS: PANTOPRAZOLE SODIUM 40 MG DR TABLET PO SCH ×3 (08:27→21:41)
[2022-12-01] MEDS: ACETAMINOPHEN 325 MG TABLET PO PRN ×3 (08:27→21:43)
[2022-12-01] MEDS: SUCRALFATE 1 GM TABLET PO SCH ×4 (08:27→21:42)
[2022-12-01] MEDS: FAMOTIDINE 20 MG TABLET PO SCH ×3 (08:27→21:41)
[2022-12-01] MEDS: MIDODRINE HCL 5 MG TABLET PO SCH ×4 (08:28→21:42)
[2022-12-01] MEDS: PROPRANOLOL HCL 10 MG TABLET PO SCH ×2 (08:29→21:00)
[2022-12-01] MEDS: FERROUS SULFATE 325 MG EC TABLET PO SCH (08:29)
[2022-12-01] MEDS ORDERED: LACTULOSE 200 GM/300 ML RECTAL SOLUTION PR SCH (09:00)
[2022-12-01] MEDS: CITRIC ACID/SODIUM CITRATE 30 ML SOLUTION UDCUP PO SCH ×3 (11:52→21:39)
[2022-12-01] MEDS: CEFEPIME HCL 1 GM in DEXTROSE 5%-WATER 50 ML IV SCH (11:52)
[2022-12-01 12:46] LABS: GLUCOMETER DEV NAME(LOC) PVLAB.39; GLUCOSE,POINT OF CARE 156 MG/DL (70-110)
[2022-12-01] MEDS ORDERED: LACTULOSE 20 GM/30 ML SOLUTION UDCUP PO SCH (16:00)
[2022-12-01] MEDS: MORPHINE SULFATE 2 MG/ML SYRINGE IVP PRN ×2 (16:39→22:57)
[2022-12-01 18:41] LABS: GLUCOSE,POINT OF CARE 160 MG/DL (70-110)
[2022-12-01] MEDS ORDERED: LATANOPROST 0.005% 2.5 ML OPHTHALMIC SOLUTION OU SCH (21:00)
[2022-12-01] MEDS: ALBUMIN HUMAN 25%-25GM/100ML 100 ML IV SCH (21:07)
[2022-12-01] MEDS ORDERED: LACTULOSE 200 GM/300 ML RECTAL SOLUTION PR ONE (22:30)
[2022-12-02] VITALS (16 sets, daily range): BP systolic 71–99; BP diastolic 40–58; PULSE 81–111; RESP 18–34; TEMP 96.2–99.1; O2SAT 97–100
[2022-12-02 00:16] LABS: GLUCOSE,POINT OF CARE 124 MG/DL (70-110)
[2022-12-02 05:31] LABS: BASOPHILS % (AUTO) 0.4 % (0.0-2.0); EOSINOPHILS % (AUTO) 0.2 % (1.0-6.0); LYMPHOCYTES # (AUTO) 0.6 K/uL (1.0-4.8); LYMPHOCYTES % (AUTO) 5.5 % (22.0-44.0); MEAN CORPUSCULAR HEMOGLOBIN 34.6 pg (26.0-34.0); MEAN CORPUSCULAR HGB CONC 32.6 G/dL (31.0-37.0); MEAN CORPUSCULAR VOLUME 106 fL (80-100); MONOCYTES # (AUTO) 0.8 K/uL (0.1-1.0); NEUTROPHILS # (AUTO) 8.9 K/uL (1.8-7.7); PLATELET COUNT (AUTO) 80 K/uL (150-450); RED BLOOD CELL COUNT(AUTO) 1.83 MIL/uL (4.00-5.20); RED CELL DISTRIBUTION WIDTH 20.3 % (11.5-14.5); WHITE BLOOD COUNT (AUTO) 10.3 K/uL (4.5-11.0)
[2022-12-02 05:36] LABS: ALBUMIN 4.3 g/dL (3.4-5.0); BILIRUBIN,TOTAL 2.8 mg/dL (0.1-1.0); CALCIUM, TOTAL 9.7 mg/dL (8.8-10.5); CREATININE 5.09 mg/dL (0.60-1.30); POTASSIUM 4.2 mmol/L (3.5-5.1); TOTAL PROTEIN, SERUM 6.6 g/dL (6.4-8.2)
[2022-12-02 05:37] LABS: NEUTROPHILS % (AUTO) 85.9 % (40.0-70.0)
[2022-12-02 05:38] LABS: HEMATOCRIT 19.5 % (36-46); HEMOGLOBIN 6.3 g/dL (12.0-16.0)
[2022-12-02] MEDS ORDERED: ALBUTEROL SULFATE 2.5 MG/0.5 ML NEB SOLUTION NEB ONE (06:00)
[2022-12-02] MEDS ORDERED: PANTOPRAZOLE SODIUM 40 MG/VIAL IVP ONE (06:00)
[2022-12-02] MEDS: LEVOTHYROXINE SODIUM 25 MCG TABLET PO SCH (06:06)
[2022-12-02] MEDS ORDERED: DEXTROSE 50%-WATER 25 GM/50 ML SYRINGE IVP PRN (06:15)
[2022-12-02] MEDS ORDERED: INSULIN LISPRO 100 UNITS/ML SQ PRN (06:15)
[2022-12-02] MEDS ORDERED: 0.9% SODIUM CHLORIDE 5 ML NEB SOLUTION NEB ONE (06:17)
[2022-12-02] MEDS ORDERED: PANTOPRAZOLE SODIUM 80 MG in SODIUM CHLORIDE 0.9% 100 ML IV SCH (06:30)
[2022-12-02 06:31] LABS: ABG BASE EXCESS -15.4 mmol/L (-2.0-3.0); ABG HCO3 13.2 mmol/L (22.0-26.0); ABG METHEMOGLOBIN 0.3 % (0.0-1.5); ABG OXYGEN CONTENT 9.6 mL/dL (15.0-23.0); ABG OXYGEN SATURATION 97.9 % (95.0-98.0); ABG OXYHEMOGLOBIN 96.6 % (94.0-100.0); ABG PCO2 29 mmHg (35-45); ABG TOTAL HEMOGLOBIN 6.9 G/dL (12.0-18.0); ALLEN TEST, BLOOD GAS Positive; SITE, BLOOD GAS LFT RADIAL; SOURCE, BLOOD GAS ARTERIAL; TEMPERATURE, FAHRENHEIT, BG 96.2 FAHREN (96.0-98.6)
[2022-12-02 06:32] LABS: O2 DEVICE,BLOOD GAS CANNULA (ROOM AIR)
[2022-12-02 06:33] LABS: ABG A-A DIFF O2 121.4 mmHg (10-20.0)
[2022-12-02 06:43] LABS: INR 2.4 (0.9-1.1); PROTHROMBIN TIME 23.5 SEC (9.4-11.6)
[2022-12-02] MEDS ORDERED: ETOMIDATE 2 MG/ML 10 ML VIAL ONE (07:14)
[2022-12-02] MEDS ORDERED: ROCURONIUM BROMIDE 10 MG/ML 5 ML VIAL ONE (07:15)
[2022-12-02] MEDS ORDERED: PROPOFOL 1000 MG/ISO-OSM 100 ML IV PRN ×2 (07:30)
[2022-12-02] MEDS ORDERED: ROCURONIUM BROMIDE 10 MG/ML 5 ML VIAL IVP ONE (07:30)
[2022-12-02] MEDS ORDERED: ETOMIDATE 2 MG/ML 10 ML VIAL IVP ONE (07:30)
[2022-12-02] MEDS: FERROUS SULFATE 325 MG EC TABLET PO SCH (08:00)
[2022-12-02] MEDS ORDERED: MIDAZOLAM HCL 2 MG/2 ML VIAL ONE (08:32)
[2022-12-02] MEDS ORDERED: MIDAZOLAM HCL 2 MG/2 ML VIAL IVP ONE (08:45)
[2022-12-02] MEDS ORDERED: SODIUM CHLORIDE 0.9% 500 ML IV ONE (08:49)
[2022-12-02] MEDS: MIDODRINE HCL 5 MG TABLET PO SCH (09:00)
[2022-12-02] MEDS: LACTULOSE 20 GM/30 ML SOLUTION UDCUP PO SCH (09:00)
[2022-12-02] MEDS: SUCRALFATE 1 GM TABLET PO SCH (09:00)
[2022-12-02] MEDS: FAMOTIDINE 20 MG TABLET PO SCH (09:00)
[2022-12-02] MEDS: CITRIC ACID/SODIUM CITRATE 30 ML SOLUTION UDCUP PO SCH (09:00)
[2022-12-02] MEDS ORDERED: SODIUM CHLORIDE 0.9% 1,000 ML ONE (09:03)
[2022-12-02] MEDS: OCTREOTIDE ACETATE 500 MCG in SODIUM CHLORIDE 0.9% 97.5 ML IV SCH (10:20)
[2022-12-02] MEDS: ALBUMIN HUMAN 25%-25GM/100ML 100 ML IV SCH (10:21)
[2022-12-02] MEDS: CEFEPIME HCL 1 GM in DEXTROSE 5%-WATER 50 ML IV SCH (10:21)
[2022-12-02] MEDS ORDERED: PHENYLEPHRINE 200 MG/D5%-WATER 250 ML IV PRN (12:15)
[2022-12-02 12:16] LABS: ABG BASE EXCESS -17.2 mmol/L (-2.0-3.0); ABG CARBOXYHEMOGLOBIN 0.4 % (0.0-1.5); ABG HCO3 11.9 mmol/L (22.0-26.0); ABG METHEMOGLOBIN 0.3 % (0.0-1.5); ABG OXYGEN CONTENT 10.6 mL/dL (15.0-23.0); ABG OXYGEN SATURATION 99.3 % (95.0-98.0); ABG OXYHEMOGLOBIN 98.6 % (94.0-100.0); ABG PCO2 38 mmHg (35-45); SOURCE, BLOOD GAS ARTERIAL; TEMPERATURE, FAHRENHEIT, BG 98.5 FAHREN (96.0-98.6)
[2022-12-02 12:17] LABS: ABG A-A DIFF O2 471.5 mmHg (10-20.0); ABG PH 7.122 (7.35-7.450); ABG TOTAL HEMOGLOBIN 7.3 G/dL (12.0-18.0); O2 DEVICE,BLOOD GAS VENTILATOR (ROOM AIR); SITE, BLOOD GAS ARTERIAL LINE
[2022-12-02 12:18] LABS: PEEP,BG 5 cm H2O; VT, ABG 350 ml
[2022-12-02 12:31] LABS: GLUCOMETER DEV NAME(LOC) PVLAB.39; GLUCOSE,POINT OF CARE 125 MG/DL (70-110)
[2022-12-02] MEDS ORDERED: MORPHINE SULFATE 100 MG/NS/PF 100 ML IV PRN (12:45)
[2022-12-03] MEDS ORDERED: CEFEPIME HCL 0.5 GM in DEXTROSE 5%-WATER 50 ML IV SCH (11:00)
[2022-12-03 11:56] LABS: GLUCOMETER DEV NAME(LOC) 5N.1C; GLUCOSE,POINT OF CARE 174 MG/DL (70-110)
== END 2022-12-02 15:55 | DRG 441 ==
LOC: EMS 10:48 → 5S 14:37 → ICU 21:48
PROVIDERS: ADMIT Internal Medicine; ATTEND Internal Medicine
PROC: 0BH17EZ Insertion of Endotracheal Airway into Trachea, Via Natural or Artificial Opening (ICD-10-PCS; principal; 2022-12-02)
PROC: 5A1935Z Respiratory Ventilation, Less than 24 Consecutive Hours (ICD-10-PCS; 2022-12-02)
PROC: 30233K1 Transfusion of Nonautologous Frozen Plasma into Peripheral Vein, Percutaneous Approach (ICD-10-PCS; 2022-12-02)
DX: K76.82 Hepatic encephalopathy (principal); J96.01 Acute respiratory failure with hypoxia; N17.0 Acute kidney failure with tubular necrosis; K76.7 Hepatorenal syndrome; D68.9 Coagulation defect, unspecified; R18.8 Other ascites; K76.6 Portal hypertension; E87.29 Other acidosis; E87.1 Hypo-osmolality and hyponatremia; K74.60 Unspecified cirrhosis of liver; Z66 Do not resuscitate; Z20.822 Contact with and (suspected) exposure to COVID-19; E78.00 Pure hypercholesterolemia, unspecified; K58.9 Irritable bowel syndrome, unspecified; K21.9 Gastro-esophageal reflux disease without esophagitis; E03.9 Hypothyroidism, unspecified; N18.9 Chronic kidney disease, unspecified; E11.22 Type 2 diabetes mellitus with diabetic chronic kidney disease; I12.9 Hypertensive chronic kidney disease with stage 1 through stage 4 chronic kidney disease, or unspecified chronic kidney disease; D63.8 Anemia in other chronic diseases classified elsewhere; R62.7 Adult failure to thrive; Z88.0 Allergy status to penicillin; Z79.84 Long term (current) use of oral hypoglycemic drugs; Z79.899 Other long term (current) drug therapy; Z68.30 Body mass index [BMI] 30.0-30.9, adult; Z82.49 Family history of ischemic heart disease and other diseases of the circulatory system; Z83.3 Family history of diabetes mellitus
CPT/HCPCS: 36600; 71045; 76700; 80048; 80053; 81001; 81002; 82140; 82805; 82962; 83605; 83690; 83880; 84100; 84145; 84484; 85025; 85610; 85730; 86850; 86900; 86901; 86923; 86927; 87040; 87081; 87086; 87186; 87481; 92610; 93005; 94002; 99285; C9113; G0238; J0692; J0885; J2250; J2270; J2354; J2370; J2704; J3430; J3490; J7030; J7040; J7050; J7060; P9017; P9046; Q9967; 36415-L1; 36415-TC; J7613